=== PATIENT | male | born 2000 | race Caucasian/White ===

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

== ENCOUNTER → 2022-08-29 | Outpatient (REF) ==
[~2022-08-29] MED LIST: AUGM875T28 PO; HYDR-3715 PO; OMEP1CAP73 PO
== END ==
LOC: M EMP 12:49
PROVIDERS: ATTEND Family Medicine
DX: Z11.52 Encounter for screening for COVID-19 (principal)

== ENCOUNTER → 2022-09-05 | Outpatient (REF) | LOC: M EMP 12:42 | PROVIDERS: ATTEND Family Medicine | DX: Z11.52 Encounter for screening for COVID-19 (principal) ==

== ENCOUNTER → 2022-09-13 | Outpatient (REF) | LOC: M EMP 13:49 | PROVIDERS: ATTEND Family Medicine | DX: Z11.52 Encounter for screening for COVID-19 (principal) ==

== ENCOUNTER → 2022-09-20 | Outpatient (REF) | LOC: M EMP 15:27 | PROVIDERS: ATTEND Family Medicine | DX: Z11.52 Encounter for screening for COVID-19 (principal) ==

== ENCOUNTER → 2022-09-27 | Outpatient (REF) | LOC: M EMP 14:16 | PROVIDERS: ATTEND Family Medicine | DX: Z11.52 Encounter for screening for COVID-19 (principal) ==